=== PATIENT | female | born 1990 | race Caucasian/White ===

== ENCOUNTER 2018-05-27 08:40 | Observation (INO) | payer OTHER ==
[~2018-05-27] VITALS: Ht 157.5 cm; Wt 69.1 kg
[~2018-05-27 08:40] MED LIST: DSS100 PO; FESO PO; IBUP-2071 PO; PREN1TAB80 PO
[2018-05-27 10:47] VITALS: BP 91/58
== END 2018-05-27 10:25 | disposition home or self-care (01) ==
LOC: 4S 08:40
PROVIDERS: ADMIT Obstetrics & Gynecology; ATTEND Obstetrics & Gynecology
DX: O26.892 Other specified pregnancy related conditions, second trimester (principal); M79.622 Pain in left upper arm; O99.342 Other mental disorders complicating pregnancy, second trimester; F32.9 Major depressive disorder, single episode, unspecified; Z3A.22 22 weeks gestation of pregnancy
CPT/HCPCS: 59025; G0378

== ENCOUNTER 2018-05-27 10:33 | Emergency (ER) | payer OTHER ==
[~2018-05-27] VITALS: Ht 149.9 cm; Wt 58.2 kg
[2018-05-27 10:45] VITALS: BP 121/78
[2018-05-27] MEDS ORDERED: ACETAMINOPHEN 325 MG TABLET PO ONE (11:30)
== END 2018-05-27 12:14 | disposition home or self-care (01) ==
LOC: EMS 10:34
DX: O9A.212 Injury, poisoning and certain other consequences of external causes complicating pregnancy, second trimester (principal); S40.022A Contusion of left upper arm, initial encounter; Z3A.20 20 weeks gestation of pregnancy; Z88.8 Allergy status to other drugs, medicaments and biological substances; X58.XXXA Exposure to other specified factors, initial encounter; Y93.89 Activity, other specified; Y92.89 Other specified places as the place of occurrence of the external cause; Y99.8 Other external cause status
CPT/HCPCS: 99282

== ENCOUNTER 2018-08-08 12:43 | Observation (INO) | payer OTHER ==
[~2018-08-08] VITALS: Ht 152.4 cm; Wt 70.8 kg
[~2018-08-08 12:43] MED LIST changes: -DSS100 PO; -FESO PO; -IBUP-2071 PO
[2018-08-08 13:15] VITALS: BP 102/57
[2018-08-08] MEDS ORDERED: [UNRECOGNIZED DRUG - CODE] IM (13:19)
[2018-08-08 14:35] LABS: APPEARANCE,URINE CLOUDY (CLEAR); BILIRUBIN,URINE NEGATIVE (NEGATIVE); GLUCOSE, URINE (UA) NEGATIVE (NEGATIVE); KETONES,URINE 15 mg/dL (NEGATIVE); LEUKOCYTE ESTERASE ,URINE MODERATE (NEGATIVE); NITRATE,URINE NEGATIVE (NEGATIVE); OCCULT BLOOD,URINE NEGATIVE (NEGATIVE); PROTEIN,URINE TRACE (NEGATIVE); UROBILINOGEN,URINE 0.2 mg/dL (<=1.0)
[2018-08-08 14:40] LABS: BACTERIA,URINE Moderate /HPF (None Seen); RBC,URINE 0-2 /HPF (0-2); SQUAMOUS EPITHELIAL CELL,UR Many /LPF (None Seen)
== END 2018-08-08 15:15 | disposition home or self-care (01) ==
LOC: 4S 12:43
PROVIDERS: ADMIT Obstetrics & Gynecology; ATTEND Obstetrics & Gynecology
DX: O26.893 Other specified pregnancy related conditions, third trimester (principal); R10.30 Lower abdominal pain, unspecified; M54.9 Dorsalgia, unspecified; Z3A.31 31 weeks gestation of pregnancy
CPT/HCPCS: 80307 ×8; 81001; 87086; G0378

== ENCOUNTER 2018-08-30 15:55 | Observation (INO) | payer OTHER ==
[~2018-08-30] VITALS: Ht 152.4 cm; Wt 71.9 kg
[~2018-08-30 15:55] MED LIST changes: +[UNRECOGNIZED DRUG - CODE] IM
[2018-08-30 16:10] VITALS: BP 105/67
[2018-08-30 16:45] LABS: BASOPHILS % (AUTO) 0.6 % (0.0-2.0); EOSINOPHILS % (AUTO) 0.5 % (1.0-6.0); HEMATOCRIT 31.3 % (36-46); HEMOGLOBIN 10.5 g/dL (12.0-16.0); LYMPHOCYTES # (AUTO) 2.1 K/uL (1.0-4.8); LYMPHOCYTES % (AUTO) 19.3 % (22.0-44.0); MEAN CORPUSCULAR HEMOGLOBIN 29.8 pg (26.0-34.0); MEAN CORPUSCULAR HGB CONC 33.7 G/dL (31.0-37.0); MEAN CORPUSCULAR VOLUME 88 fL (80-100); MONOCYTES # (AUTO) 0.6 K/uL (0.1-1.0); MONOCYTES % (AUTO) 5.7 % (2.0-9.0); NEUTROPHILS % (AUTO) 73.9 % (40.0-70.0); PLATELET COUNT (AUTO)-OB 229 K/uL (150-450); RED BLOOD CELL COUNT(AUTO) 3.54 MIL/uL (4.00-5.20); RED CELL DISTRIBUTION WIDTH 14.3 % (11.5-14.5)
[2018-08-30 16:48] LABS: APPEARANCE,URINE CLEAR (CLEAR); BILIRUBIN,URINE NEGATIVE (NEGATIVE); GLUCOSE, URINE (UA) NEGATIVE (NEGATIVE); KETONES,URINE 15 mg/dL (NEGATIVE); LEUKOCYTE ESTERASE ,URINE SMALL (NEGATIVE); NITRATE,URINE NEGATIVE (NEGATIVE); OCCULT BLOOD,URINE NEGATIVE (NEGATIVE); PROTEIN,URINE NEGATIVE (NEGATIVE)
[2018-08-30 16:55] LABS: ANION GAP 9 mmol/L (8-16); CALCIUM, TOTAL 8.8 mg/dL (8.8-10.5); CARBON DIOXIDE 22 mmol/L (22-29); CHLORIDE 103 mmol/L (98-107); CREATININE 0.53 mg/dL (0.60-1.30); GLOMERULAR FILTR. RATE CALC > 60 mL/min (>60); GLUCOSE,RANDOM 89 mg/dL (70-110); POTASSIUM 3.7 mmol/L (3.5-5.1); SODIUM SERUM 134 mmol/L (136-145); UREA NITROGEN, BLOOD 6 mg/dL (7-18)
[2018-08-30 17:00] LABS: ALANINE AMINOTRANSFERASE 94 U/L (12-78); ALBUMIN 2.4 g/dL (3.4-5.0); ALKALINE PHOSPHATASE 126 U/L (46-116); ASPARTATE AMINOTRANSFERASE 60 U/L (15-37); BILIRUBIN,TOTAL 0.7 mg/dL (0.1-1.0); TOTAL PROTEIN, SERUM 6.4 g/dL (6.4-8.2)
[2018-08-30 17:05] LABS: BACTERIA,URINE Few /HPF (None Seen); RBC,URINE None Seen /HPF (0-2); SQUAMOUS EPITHELIAL CELL,UR Moderate /LPF (None Seen); WBC,URINE 0-2 /HPF (0-5)
[2018-08-30] MEDS: RINGERS SOLUTION,LACTATED 1,000 ML IV SCH ×2 (17:13→18:14)
[2018-08-30] MEDS ORDERED: MAG HYDROX/AL HYDROX/SIMETH ES 30 ML SUSPENSION UDCUP PO ONE (17:45)
[2018-08-30] MEDS ORDERED: CALCIUM CARBONATE 500 MG CHEWABLE TABLET CHEW ONE (17:45)
== END 2018-08-30 22:25 | disposition home or self-care (01) ==
LOC: 4S 15:55
PROVIDERS: ADMIT Obstetrics & Gynecology; ATTEND Obstetrics & Gynecology
DX: O26.893 Other specified pregnancy related conditions, third trimester (principal); R10.9 Unspecified abdominal pain; R19.7 Diarrhea, unspecified; O21.2 Late vomiting of pregnancy; Z3A.34 34 weeks gestation of pregnancy
CPT/HCPCS: 36415; 80053; 81001; 85025; 96360; 96361; G0378; J7120

== ENCOUNTER 2018-11-22 18:16 | Emergency (ER) | payer OTHER ==
[~2018-11-22] VITALS: Ht 149.9 cm; Wt 65.9 kg
[2018-11-22] MEDS: IBUPROFEN 600 MG TABLET PO ONE ×2 (20:28→20:51)
[2018-11-22 22:02] VITALS: BP 118/70
== END 2018-11-22 22:25 | disposition home or self-care (01) ==
LOC: EMS 18:16
DX: S83.92XA Sprain of unspecified site of left knee, initial encounter (principal); S80.211A Abrasion, right knee, initial encounter; Z88.8 Allergy status to other drugs, medicaments and biological substances; W19.XXXA Unspecified fall, initial encounter; Y93.89 Activity, other specified; Y92.89 Other specified places as the place of occurrence of the external cause; Y99.8 Other external cause status
CPT/HCPCS: 29505; 29530